=== PATIENT | male | born 1940 | race Caucasian/White ===

== ENCOUNTER → 2017-04-26 | Outpatient (CLI) | payer MEDICARE ==
--- NOTE | 2017-04-26 16:50 | Diagnostic Imaging Report ---
Renal ultrasound. INDICATION: Right renal cyst. FINDINGS: The right kidney is 14 cm and the left kidney is 13 cm in length. There is no hydronephrosis. There is a 5 x 3.4 x 6.5 cm lobulated cyst in the upper pole of the right kidney with thin septations. There is no solid component or internal vascularity demonstrated. No focal lesion is seen in the left kidney. No hydronephrosis. The urinary bladder appears unremarkable. IMPRESSION: Lobulated complex lesion in the upper pole right kidney 6.5 cm with thin septations and lobulated borders likely related to a complicated cyst. Follow-up ultrasound in six months is recommended to ensure stability. Dictated by: Dictated on workstation # [id number]
--- NOTE | 2017-04-26 17:20 | Diagnostic Imaging Report ---
Scrotal ultrasound. INDICATION: Recent urinary infection. Swollen right testicle. FINDINGS: The right the testicle is 4.6 x 3.8 x 3.5 cm and the left testicle is 4.9 x 2.1 x 3.1 cm. The left testicle appears slightly heterogeneous with no discrete mass. There is a small hydrocele around the left testicle, possible loculation inferiorly. Arterial waveforms are demonstrated over both testicles. Superior to the right testicle there is soft tissue thickening with increased vascularity that is inseparable from the epididymis which may relate to epididymitis. IMPRESSION: 1. Hyperemic tissue superior to the right testicle may relate to epididymitis. 2. Slightly heterogeneous left testicle with normal vascularity and no focal mass. There is surrounding [id number] hydrocele. This is questioned to be sequela of prior orchitis or other injury. Correlate clinically and with a follow-up ultrasound in three months to reevaluate. Dictated by: Dictated on workstation # [id number]
== END ==
LOC: RAD 10:36
PROVIDERS: ATTEND Urology
DX: N28.1 Cyst of kidney, acquired (principal); N50.811 Right testicular pain
CPT/HCPCS: 76770; 76870

== ENCOUNTER → 2017-11-07 | Outpatient (CLI) | payer MEDICARE ==
--- NOTE | 2017-11-07 11:16 | Diagnostic Imaging Report ---
EXAMINATION: Bilateral renal ultrasound. INDICATION: Complex renal cyst followup. COMPARISON: 04/26/2017. FINDINGS: The right kidney is 11.6 and the left kidney is 11.9 cm in length. There is no hydronephrosis or focal solid mass seen. The urinary bladder appears unremarkable. There is a lobulated cystic lesion measuring 5.2 x 5.9 x 3 cm compared to 3.3 x 5 x 6.5 cm previously with no solid component identified. No internal vascularity is seen with color Doppler. A very thin septation is suggested. IMPRESSION: A lobulated minimally complicated cystic lesion in the right kidney measuring 5.9 cm is again seen without change. Dictated by: Dictated on workstation # [id number]
== END ==
LOC: RAD 08:35
PROVIDERS: ATTEND Urology
DX: N28.1 Cyst of kidney, acquired (principal)
CPT/HCPCS: 76770